=== PATIENT | male | born 1995 | race Caucasian/White ===

== ENCOUNTER 2017-08-01 07:17 | Emergency (ER) | payer OTHER ==
--- NOTE | 2017-08-01 07:19 | UC ---
Skin Complaint HPI - HPI Summary HPI Summary: 22 year old male presents with complains of bump on his mid back. - History of Current Complaint Time Seen by Provider: 08/01/17 07:19 Stated Complaint: bump ON BACK Hx Obtained From: Patient Onset/Duration: Gradual Onset Skin Exposure Onset/Duration: Days Ago Onset Severity: Moderate Current Severity: Moderate - Allergy/Home Medications Allergies/Adverse Reactions: Allergies Allergy/AdvReac Type Severity Reaction Status Date / Time No Known Allergies Allergy Verified 08/01/17 07:27 Review of Systems Constitutional: Negative Skin: Other - bump on spine Eyes: Negative ENT: Negative Respiratory: Negative Cardiovascular: Negative Gastrointestinal: Negative Genitourinary: Negative Motor: Negative Neurovascular: Negative Musculoskeletal: Negative Neurological: Negative Psychological: Negative All Other Systems Reviewed And Are Negative: Yes PMH/Surg Hx/FS Hx/Imm Hx - Surgical History Surgical History: None - Family History Known Family History: Positive: Hypertension - Social History Alcohol Use: Weekly Substance Use Type: None Smoking Status (MU): Never Smoked Tobacco Physical Exam Triage Information Reviewed: Yes Vital Signs Reviewed: Yes Eye Exam: Normal ENT Exam: Normal Dental Exam: Normal Neck exam: Normal Neck: Positive: 1 Respiratory Exam: Normal Cardiovascular Exam: Normal Abdominal Exam: Normal Musculoskeletal Exam: Normal Neurological Exam: Normal Psychological Exam: Normal Skin: Positive: Other - nodule/abscess on back Course/Dx - Diagnoses Provider Diagnoses: abscess/nodule on lower back Discharge - Discharge Plan Condition: Stable Disposition: HOME Prescriptions: Cephalexin CAP* [Keflex CAP*] 500 mg PO TID #30 cap Patient Education Materials: Abscess (ED) Referrals: [facility] [Primary Care Provider] - Meliza Shin [Medical Doctor] -
[2017-08-01 07:26] VITALS: BP 119/66
== END 2017-08-01 07:37 | disposition home or self-care (01) ==
LOC: UCEAST 07:17
DX: R22.2 Localized swelling, mass and lump, trunk (principal)
CPT/HCPCS: 99212; G0463

== ENCOUNTER 2018-02-26 07:17 | Emergency (ER) | payer OTHER ==
[2018-02-26 07:28] VITALS: BP 121/64
--- NOTE | 2018-02-26 07:35 | UC ---
Throat Pain/Nasal Jagdish HPI - HPI Summary HPI Summary: Patient is a 22-year-old male with a 10 day history of sinus pressure and pain. The pressure radiates to his occiput. Prior to the onset of the symptoms he had about a 2 week history of severe allergic rhinitis. No fever or chills. No marked dental or gum sensitivity. He has had no chest pain or shortness of breath. - History of Current Complaint Chief Complaint: UCRespiratory Stated Complaint: SINUS COMPLAINT Time Seen by Provider: 02/26/18 07:28 Hx Obtained From: Patient Onset/Duration: Gradual Onset, Lasting Days - 10 Severity: Mild Pain Intensity: 3 Pain Scale Used: 0-10 Numeric Associated Signs & Symptoms: Positive: Sinus Discomfort Related History: Seasonal Allergies - Allergies/Home Medications Allergies/Adverse Reactions: Allergies Allergy/AdvReac Type Severity Reaction Status Date / Time Seasonal Allergy Congestion Uncoded 02/26/18 07:22 Home Medications: Home Medications Cetirizine* [ZyrTEC 10 MG TAB*] 10 mg PO DAILY 02/26/18 [History Confirmed 02/26] PMH/Surg Hx/FS Hx/Imm Hx Previously Healthy: Yes - Surgical History Surgical History: Yes Surgery Procedure, Year, and Place: wisdom teeth - Family History Known Family History: Positive: Cardiac Disease, Hypertension, Diabetes - Social History Alcohol Use: Weekly Substance Use Type: None Smoking Status (MU): Never Smoked Tobacco - Immunization History Most Recent Influenza Vaccination: NOT UTD Most Recent Tetanus Shot: unsure Review of Systems Constitutional: Negative Skin: Negative Eyes: Negative ENT: Sinus Pain/Tenderness Respiratory: Negative Cardiovascular: Negative Gastrointestinal: Negative Genitourinary: Negative Motor: Negative Neurovascular: Negative Musculoskeletal: Negative Neurological: Negative Psychological: Negative Is Patient Immunocompromised?: No All Other Systems Reviewed And Are Negative: Yes Physical Exam Triage Information Reviewed: Yes Appearance: Well-Appearing, No Pain Distress, Well-Nourished Vital Signs: Initial Vital Signs Temp 98.9 F 02/26/18 07:23 Pulse 76 02/26/18 07:23 Resp 18 02/26/18 07:23 BP 121/64 02/26/18 07:23 Pulse Ox 99 02/26/18 07:23 Vital Signs Reviewed: Yes Eyes: Positive: Conjunctiva Clear ENT: Positive: Hearing grossly normal, Nasal congestion, TMs normal, Sinus tenderness, Uvula midline. Negative: Trismus, Muffled voice, Hoarse voice Neck: Positive: Supple, Nontender, No Lymphadenopathy Respiratory: Positive: Lungs clear, Normal breath sounds, No respiratory distress, No accessory muscle use Cardiovascular: Positive: RRR, No Murmur Neurological: Positive: Alert Psychological Exam: Normal Psychological: Positive: Normal Response To Family Skin Exam: Normal Throat Pain/Nasal Course/Dx - Differential Dx/Diagnosis Provider Diagnoses: acute sinusitis Discharge - Sign-Out/Discharge Documenting (check all that apply): Patient Departure - Discharge Plan Condition: Stable Disposition: HOME Prescriptions: Amoxicillin PO (*) [Amoxicillin 875 MG (*)] 875 mg PO BID #20 tab Fluticasone NASAL SPRAY 50MCG* [Flonase NASAL SPRAY 50MCG*] 2 spray BOTH NARES BID #1 btl Patient Education Materials: Sinusitis (ED) Referrals: No Primary Care Phys,NOPCP [Primary Care Provider] - Additional Instructions: recheck for new or worsening symptoms - Billing Disposition and Condition Condition: STABLE Disposition: Home
== END 2018-02-26 07:45 | disposition home or self-care (01) ==
LOC: UCEAST 07:17
DX: J01.90 Acute sinusitis, unspecified (principal)
CPT/HCPCS: 99212; G0463

== ENCOUNTER 2018-04-06 07:42 | Emergency (ER) | payer OTHER ==
[2018-04-06 07:51] VITALS: BP 119/65
[2018-04-06] MEDS ORDERED: Lidocaine 1%* 5 ML VIAL INJ ONE (07:58)
--- NOTE | 2018-04-06 08:04 | UC ---
Skin Complaint HPI - HPI Summary HPI Summary: This patient is a year old 22 M presenting to [facility] with a CC of splinter in his right 2nd finger along the middle phalynx. He states his tetanus is up to date, that he is left handed, and believes the foreign body is wood. Pt had sinus infection and put on ABx recently, but is not on any currently. He denies joint pain in affected finger. not immunocompromised Pt's medications reviewed - History of Current Complaint Stated Complaint: SPLINTER Hx Obtained From: Patient Onset/Duration: Sudden Onset, Lasting Days, Still Present Skin Exposure Onset/Duration: Days Ago Timing: Constant Onset Severity: Mild Current Severity: Mild Pain Intensity: 1 Pain Scale Used: 0-10 Numeric Location: Hand (Right) Character: Redness, Raised Aggravating Factor(s): Nothing Alleviating Factor(s): Nothing Associated Signs & Symptoms: Positive: Tenderness. Negative: Fever Related History: Foreign Body - Probably wood, Other: - tetanus up to date, left -hand dominant - Allergy/Home Medications Allergies/Adverse Reactions: Allergies Allergy/AdvReac Type Severity Reaction Status Date / Time Seasonal Allergy Congestion Uncoded 02/26/18 07:22 Review of Systems Skin: Other - splinter in right 2nd finger Motor: Decreased ROM Is Patient Immunocompromised?: No All Other Systems Reviewed And Are Negative: Yes PMH/Surg Hx/FS Hx/Imm Hx Previously Healthy: Yes - Surgical History Surgical History: Yes Surgery Procedure, Year, and Place: wisdom teeth - Family History Known Family History: Positive: Cardiac Disease, Hypertension, Diabetes - Social History Occupation: Student Lives: Dormitory/Roommates Alcohol Use: Weekly Substance Use Type: None Smoking Status (MU): Never Smoked Tobacco - Immunization History Most Recent Influenza Vaccination: NOT UTD Most Recent Tetanus Shot: unsure Physical Exam - Summary Physical Exam Summary: Vital Signs Reviewed: Yes A+Ox3, no distress Eyes: Conjunctiva Clear ENT: Hearing grossly normal neck: supple Respiratory: Positive: No respiratory distress, No accessory muscle use Cardiovascular: skin color reflect adequate perfusion Musculoskeletal Exam: FAUSTIN x 4 without difficulty + flex/ext MCP, PIP, DIP without difficulty Neurological: Positive: Alert, ambulatory without difficulty Psychological: Positive: Normal Response To Family Skin: Positive: right hand index pt with visible fb palmar side along mid phalynx no drainage. + mild TTP no odor, no discharge mild erythema at site of FB - no extension, no fluctuance, no induration Triage Information Reviewed: Yes Vital Signs: Initial Vital Signs Temp 97.4 F 04/06/18 07:47 Pulse 67 04/06/18 07:47 Resp 18 04/06/18 07:47 BP 119/65 04/06/18 07:47 Pulse Ox 99 04/06/18 07:47 Course/Dx - Course Course Of Treatment: Pt with foreign body in right index finger. see procedure note - removed without difficulty - pt tolerated well. reviewed with pt s/s infection. return precautions. motrin/apap - Diagnoses Provider Diagnoses: foreign body removal right index finger Procedures - Procedure Summary Procedure Summary: Verbal consent obtained timeout conducted with nurse at bedside. area cleansed with chlorohexadine, foreign body infiltrated 1.5 ml 1% lidocaine no epi, using splinter forceps removed thorn splinter intact. Washed site after removal, pt tolerated well, reviewed wound care signs and symptoms of infection. Discharge - Sign-Out/Discharge Documenting (check all that apply): Patient Departure All imaging exams completed and their final reports reviewed: No Studies - Discharge Plan Condition: Stable Disposition: HOME Patient Education Materials: Soft Tissue Foreign Body (ED) Forms: *School Release Referrals: [facility] @ [Outside] No Primary Care Phys,NOPCP [Primary Care Provider] - Additional Instructions: - wash wound with warm,soapy water 2-3 times a day - cover wound with antibiotic ointment and bandaid - Monitor for signs of infection. Redness, red streaking, odor, pus, increased pain - Numbing medication approximately 90 minutes. It is recommended to alternate ibuprofen (Motrin, Advil) and Tylenol every 3 hours as needed for pain. - Contact student health or return with any questions or concerns - Billing Disposition and Condition Condition: STABLE Disposition: Home - Attestation Statements Document Initiated by Scribe: Yes Documenting Scribe: Elijah Teague Provider For Whom David is Documenting (Include Credential): Dr. Norah Tilley MD Scribe Attestation: Elijah Aburto scribed for Dr. Norah Tilley MD on 04/11/18 at 1558. Scribe Documentation Reviewed: Yes Provider Attestation: The documentation as recorded by the meetibElijah vega accurately reflects the service I personally performed and the decisions made by me, Dr. Norah Tilley MD
== END 2018-04-06 08:20 | disposition home or self-care (01) ==
LOC: UCEAST 07:42
DX: S60.450A Superficial foreign body of right index finger, initial encounter (principal); X58.XXXA Exposure to other specified factors, initial encounter; Y93.9 Activity, unspecified; Y92.9 Unspecified place or not applicable
CPT/HCPCS: 10120; 99211; G0463

== ENCOUNTER 2018-07-17 18:45 | Emergency (ER) | payer OTHER ==
[2018-07-17 18:57] VITALS: BP 118/70
--- NOTE | 2018-07-17 19:33 | UC ---
Abdominal Pain Male HPI - HPI Summary HPI Summary: PATIENT COMPLAINS OF SEVERAL WEEKS TO MONTHS OF RIGHT SIDED ABDOMINAL PAIN WITH OCCASIONAL RADIATION INTO THE RIGHT GROIN AND TESTICLE. HE HAS BEEN COMPLAINING OF SOME HEARTBURN SYMPTOMS ALONG WITH SOME INTERMITTENT DYSURIA AND URINARY FREQUENCY. HE DENIES ANY FEVER. PAIN IS NOT ASSOCIATED WITH FOOD. NO DIARRHEA OR CONSTIPATION BUT THINKS HE SAW SOME BLOOD IN HIS STOOL LAST NIGHT AND THIS MORNING. DENIES ANY HISTORY OF HEMORRHOIDS. DENIES ANY ANAL PENETRATION. HAS UNPROTECTED SEX WITH HIS GIRLFRIEND. THEY ARE MONOGAMOUS. REPORTS HE HAD STD TESTING ABOUT A MONTH AGO AT [facility] WHICH WAS NEGATIVE BUT HE WAS TX WITH 1G AZITH PRESUMPTIVELY. - History of Current Complaint Chief Complaint: UCAbdominalPain Stated Complaint: ABD PAIN Time Seen by Provider: 07/17/18 18:59 Hx Obtained From: Patient Onset/Duration: Gradual Onset, Lasting Weeks, Still Present Timing: Constant Severity Initially: Moderate Severity Currently: Moderate Pain Intensity: 5 Pain Scale Used: 0-10 Numeric Location: Discrete At: RUQ, Discrete At: RLQ Radiates: Yes Radiates to: Inguinal Character: Sharp Aggravating Factor(s): Nothing Alleviating Factor(s): Nothing Associated Signs And Symptoms: Positive: Blood in Stool, Urinary Symptoms. Negative: Diaphoresis, Fever, Cough, Chest Pain, Back Pain, Constipation, Decreased Appetite, Nausea, Vomiting, Diarrhea, Penile Discharge - Allergies/Home Medications Allergies/Adverse Reactions: Allergies Allergy/AdvReac Type Severity Reaction Status Date / Time Seasonal Allergy Congestion Uncoded 07/17/18 18:57 Home Medications: Home Medications NK [No Home Medications Reported] 07/17/18 [History Confirmed 07/17/18] PMH/Surg Hx/FS Hx/Imm Hx Previously Healthy: Yes - Surgical History Surgical History: Yes Surgery Procedure, Year, and Place: wisdom teeth - Family History Known Family History: Positive: Cardiac Disease, Hypertension, Diabetes Family History: GRANDFATHER - COLON CANCER - Social History Alcohol Use: Occasionally Substance Use Type: None Smoking Status (MU): Never Smoked Tobacco - Immunization History Most Recent Influenza Vaccination: NOT UTD Most Recent Tetanus Shot: unsure Review of Systems All Other Systems Reviewed And Are Negative: Yes Constitutional: Positive: Negative ENT: Positive: Negative Respiratory: Positive: Negative Cardiovascular: Positive: Negative Gastrointestinal: Positive: Abdominal Pain Genitourinary: Positive: Dysuria, Frequency Physical Exam Triage Information Reviewed: Yes Appearance: Well-Appearing, No Pain Distress, Well-Nourished Vital Signs: Initial Vital Signs Temp 98.8 F 07/17/18 18:50 Pulse 78 07/17/18 18:50 Resp 16 07/17/18 18:50 BP 118/70 07/17/18 18:50 Pulse Ox 100 07/17/18 18:50 Laboratory Tests 07/17/18 19:14 POC Urine Color Yellow POC Urine Clarity Clear POC Urine pH 7.0 POC Ur Specif [place] 1.020 POC Urine Protein Negative POC Ur Glucose (UA) Negative POC Urine Ketones Negative POC Urine Blood Negative POC Urine Nitrite Negative POC Urine Bilirubin Negative POC Urine Urobilinogen 0.2 POC U Leukocyte Esteras Negative Vital Signs Reviewed: Yes Eyes: Positive: Conjunctiva Clear ENT: Positive: Hearing grossly normal Neck: Positive: Supple Respiratory: Positive: No respiratory distress, No accessory muscle use Cardiovascular: Positive: Pulses Normal Abdomen Description: Positive: Soft, Other: - TTP RUQ, RLQ. NO REBOUND OR RIGIDITY. NEG ROBLES'S. Negative: CVA Tenderness (R), CVA Tenderness (L), Distended, Guarding Bowel Sounds: Positive: Present Male Genital Exam: Positive: No Hernia, Testicular Tenderness (R) - MILD. Negative: Epididymal Tenderness, Erythema, Inguinal Tenderness, Testicular Tenderness (L), Urethral Discharge Musculoskeletal: Positive: No Edema Neurological: Positive: Alert Psychological: Positive: Age Appropriate Behavior Skin: Negative: Rashes Abd Pain Male Course/Dx - Course Course Of Treatment: URINE DIP UNREMARKABLE. PT WITH CONSTELLATION OF VAGUE SYMPTOMS INCLUDING RUQ PAIN, RIGHT GROIN PAIN, INTERMITTENT RIGHT TESTICULAR PAIN, DYSURIA AND URINARY FREQUENCY. REQUIRES HIGHER LEVEL OF CARE THAN WHAT WE CAN PROVIDE IN THE . PT OFFERED TRANSPORT TO THE ED BY AMBULANCE BUT DECLINES. ADVISED THAT BY NOT TRAVELING IN A MONITORED SETTING HE COULD BE RISKING WORSENING OF HIS CONDITION THAT COULD POSE A THREAT TO HIS LIFE, HEALTH AND MEDICAL SAFETY. HE VERBALIZES UNDERSTANDING AND CONTINUES TO DECLINE AMBULANCE TRANSFER. - Differential Dx/Clinical Impression Provider Diagnosis: RUQ pain, Dysuria Discharge - Sign-Out/Discharge Documenting (check all that apply): Patient Departure All imaging exams completed and their final reports reviewed: No Studies - Discharge Plan Condition: Stable Disposition: TRANS HIGHER LVL OF CARE FAC Patient Education Materials: Dysuria (ED), Abdominal Pain (ED) Referrals: [facility] @ [facility] [Outside] Additional Instructions: URINE TEST TODAY UNREMARKABLE. UNCLEAR ETIOLOGY OF YOUR SYMPTOMS. GO DIRECTLY TO THE [facility] FROM HERE FOR FURTHER EVALUATION. YOU HAVE DECLINED TRANSFER TO THE ED BY AMBULANCE. BE ADVISED THAT BY NOT TRAVELING IN A MONITORED SETTING YOU COULD BE RISKING WORSENING OF YOUR CONDITION THAT COULD POSE A THREAT TO YOUR LIFE, HEALTH AND MEDICAL SAFETY. - Billing Disposition and Condition Condition: STABLE Disposition: Trans Higher Lvl of Care Fac
== END 2018-07-17 19:41 | disposition short-term general hospital (02) ==
LOC: UCEAST 18:45
DX: R10.11 Right upper quadrant pain (principal); R30.0 Dysuria
CPT/HCPCS: 81003; 99212; G0463

== ENCOUNTER 2018-07-17 20:01 | Emergency (ER) | payer OTHER ==
[2018-07-17 20:51] LABS: ABS Basophils 0 10^3/ul (0-0.2); ABS Eosinophils 0.2 10^3/ul (0-0.6); ABS Lymphocytes 1.4 10^3/ul (1.0-4.8); ABS Monocytes 0.5 10^3/ul (0-0.8); ABS Neutrophils 3.9 10^3/ul (1.5-7.7); ABS Nucleated RBC 0 10^3/ul; Hematocrit 43 % (42-52); Hemoglobin 14.8 g/dl (14.0-18.0); Lymphocyte % 22.9 %; Mean Corpuscular HGB Conc 35 g/dl (31-36); Mean Corpuscular Hemoglobin 30 pg (27-31); Mean Corpuscular Volume 86 fL (80-94); Mean Platelet Volume 7.8 fL (7.4-10.4); Nucleated Red Blood Cells % 0.1; Platelet Count 233 10^3/ul (150-450); Red Blood Count 4.94 10^6/ul (4.00-5.40); Red Cell Distribution Width 13 % (10.5-15)
[2018-07-17 21:01] LABS: Urine Appearance Clear; Urine Blood Negative (Negative); Urine Color Straw; Urine Ketones Negative (Negative); Urine Protein Negative (Negative); Urine Specific Gravity 1.011 (1.010-1.030); Urine Urobilinogen Negative (Negative)
[2018-07-17 21:08] LABS: EGFR Non-African American 78.8 (>60)
--- NOTE | 2018-07-17 22:59 | ED ---
Abdominal Pain/Male - HPI Summary HPI Summary: Patient sent from urgent care to ED complains of intermittent right upper quadrant abdominal pain times months with occasional radiation down into right side groin and testicle. Right upper quadrant pain has been progressive and constant for the past 5 days, steady at 5/10 pain. Patient states pain is not worse with food or movement. Denies trauma. Complains of one episode of blood on toilet paper after bowel movement yesterday. Patient denies fever, cough, sore throat, RESENDIZ, neck stiffness, CP, SOB, N/V/D, change in urine, penile symptoms. Medical history is none. Abdominal surgical history is none. - History of Current Complaint Chief Complaint: EDAbdPain Stated Complaint: ABD PAIN Time Seen by Provider: 07/17/18 20:17 Hx Obtained From: Patient Onset/Duration: Gradual Onset, Lasting Weeks Timing: Constant, Lasting Weeks Severity Initially: Moderate Severity Currently: Moderate Pain Intensity: 6 Pain Scale Used: 0-10 Numeric Location: Discrete At: RUQ Radiates: Yes Radiates to: Other - Groin Character: Dull, Cramping Aggravating Factor(s): Nothing Alleviating Factor(s): Nothing Associated Signs And Symptoms: Positive: Blood in Stool - Allergies/Home Medications Allergies/Adverse Reactions: Allergies Allergy/AdvReac Type Severity Reaction Status Date / Time Seasonal Allergy Congestion Uncoded 07/17/18 18:57 PMH/Surg Hx/FS Hx/Imm Hx Endocrine/Hematology History: Denies: Hx Diabetes, Hx Thyroid Disease Cardiovascular History: Denies: Hx Hypertension Respiratory History: Denies: Hx Asthma, Hx Chronic Obstructive Pulmonary Disease (COPD) GI History: Denies: Hx Ulcer History: Denies: Hx Dialysis Neurological History: Denies: Hx CVA Psychiatric History: Denies: Hx Autism - Surgical History Surgery Procedure, Year, and Place: wisdom teeth Infectious Disease History: No Infectious Disease History: Denies: Hx Hepatitis, Hx Human Immunodeficiency Virus (HIV), Traveled Outside the [place] in Last 30 Days - Family History Known Family History: Positive: Cardiac Disease, Hypertension, Diabetes - Social History Occupation: Student Alcohol Use: Occasionally Hx Substance Use: No Substance Use Type: Reports: None Hx Tobacco Use: No Smoking Status (MU): Never Smoked Tobacco Review of Systems Constitutional: Negative Eyes: Negative ENT: Negative Cardiovascular: Negative Respiratory: Negative Positive: Abdominal Pain Genitourinary: Negative Musculoskeletal: Negative Skin: Negative Neurological: Negative Psychological: Normal All Other Systems Reviewed And Are Negative: Yes Physical Exam - Summary Physical Exam Summary: Mild right upper quadrant pain to palpation. Abdominal exam otherwise unremarkable. Exam of genitals unremarkable. Triage Information Reviewed: Yes Vital Signs On Initial Exam: Initial Vitals Temp Pulse Resp BP Pulse Ox 100.0 F 82 16 120/70 100 07/17/18 20:03 07/17/18 20:03 07/17/18 20:03 07/17/18 20:03 07/17/18 20:03 Vital Signs Reviewed: Yes Appearance: Positive: Well-Appearing Skin: Positive: Warm Head/Face: Positive: Normal Head/Face Inspection Eyes: Positive: Normal Neck: Positive: Supple Respiratory/Lung Sounds: Positive: Clear to Auscultation Cardiovascular: Positive: Normal Abdomen Description: Positive: Other: Male Genital Exam: Positive: Normal Genitalia Musculoskeletal: Positive: Normal Neurological: Positive: Normal Psychiatric: Positive: Normal AVPU Assessment: Alert - [place] Coma Scale Best Eye Response: 4 - Spontaneous Best Motor Response: 6 - Obeys Commands Best Verbal Response: 5 - Oriented Coma Scale Total: 15 Diagnostics - Vital Signs Vital Signs Temp Pulse Resp BP Pulse Ox 07/17/18 20:34 73 136/76 100 07/17/18 20:03 100.0 F 82 16 120/70 100 - Laboratory Lab Results: Lab Results 07/17/18 07/17/18 07/17/18 Range/Units 20:44 20:44 20:53 WBC 6.0 (3.5-10.8) 10^3/ul RBC 4.94 (4.00-5.40) 10^6/ul Hgb 14.8 (14.0-18.0) g/dl Hct 43 (42-52) % MCV 86 (80-94) fL MCH 30 (27-31) pg MCHC 35 (31-36) g/dl RDW 13 (10.5-15) % Plt Count 233 (150-450) 10^3/ul MPV 7.8 (7.4-10.4) fL Neut % (Auto) 65.7 % Lymph % (Auto) 22.9 % [place] % (Auto) 7.9 % Eos % (Auto) 3.0 % Baso % (Auto) 0.5 % Absolute Neuts (auto) 3.9 (1.5-7.7) 10^3/ul Absolute Lymphs (auto) 1.4 (1.0-4.8) 10^3/ul Absolute Monos (auto) 0.5 (0-0.8) 10^3/ul Absolute Eos (auto) 0.2 (0-0.6) 10^3/ul Absolute Basos (auto) 0 (0-0.2) 10^3/ul Absolute Nucleated RBC 0 10^3/ul Nucleated RBC % 0.1 Sodium 138 (135-145) mmol/L Potassium 4.1 (3.5-5.0) mmol/L Chloride 105 (101-111) mmol/L Carbon Dioxide 27 (22-32) mmol/L Anion Gap 6 (2-11) mmol/L BUN 19 (6-24) mg/dL Creatinine 1.15 (0.67-1.17) mg/dL Est GFR ( Amer) 95.4 (>60) Est GFR (Non-Af Amer) 78.8 (>60) BUN/Creatinine Ratio 16.5 (8-20) Glucose 110 H (70-100) mg/dL Calcium 9.9 (8.6-10.3) mg/dL Total Bilirubin 0.60 (0.2-1.0) mg/dL AST 17 (13-39) U/L ALT 15 (7-52) U/L Alkaline Phosphatase 58 (34-104) U/L C-Reactive Protein < 1.00 (<8.01) mg/L Total Protein 7.5 (6.4-8.9) g/dL Albumin 4.7 (3.2-5.2) g/dL Globulin 2.8 (2-4) g/dL Albumin/Globulin Ratio 1.7 (1-3) Lipase 10 L (11.0-82.0) U/L Urine Color Straw Urine Appearance Clear Urine pH 6.0 (5-9) Ur Specific [place] 1.011 (1.010-1.030) Urine Protein Negative (Negative) Urine Ketones Negative (Negative) Urine Blood Negative (Negative) Urine Nitrate Negative (Negative) Urine Bilirubin Negative (Negative) Urine Urobilinogen Negative (Negative) Ur Leukocyte Esterase Negative (Negative) Urine Glucose Negative (Negative) Result Diagrams: 07/17/18 20:44 07/17/18 20:44 Lab Statement: Any lab studies that have been ordered have been reviewed, and results considered in the medical decision making process. Abdominal Pain Fem Course/Dx - Course Course Of Treatment: Patient sent from urgent care to ED complains of intermittent right upper quadrant abdominal pain times months with occasional radiation down into right side groin and testicle. Right upper quadrant pain has been progressive and constant for the past 5 days, steady at 5/10 pain. Patient states pain is not worse with food or movement. Denies trauma. Complains of one episode of blood on toilet paper after bowel movement yesterday. Patient denies fever, cough, sore throat, RESENDIZ, neck stiffness, CP, SOB, N/V/D, change in urine, penile symptoms. Medical history is none. Abdominal surgical history is none. Physical exam:Mild right upper quadrant pain to palpation. Abdominal exam otherwise unremarkable. Exam of genitals unremarkable. Vital signs within normal limits and stable. Labs unremarkable. Ultrasound gallbladder negative. Ultrasound testicle is negative. Patient opted not to have CT abdomen and pelvis performed as it would take another 2 hours and he has final exams at 8 AM. Patient agreed to follow up with [facility] after finals for further evaluation, or return to the ED for any new or worsening symptoms. - Diagnoses Provider Diagnoses: Right upper quadrant pain Discharge - Sign-Out/Discharge Documenting (check all that apply): Patient Departure - Discharge Plan Condition: Stable Disposition: HOME Patient Education Materials: Abdominal Pain (ED) Referrals: No Primary Care Phys,NOPCP [Primary Care Provider] - [facility] [Outside] Additional Instructions: Follow[facility]up with [facility] for further evaluation. Return to ED for any new or worsening symptoms. - Billing Disposition and Condition Condition: STABLE Disposition: Home
[2018-07-17 23:49] VITALS: BP 126/69
== END 2018-07-17 23:50 | disposition home or self-care (01) ==
LOC: ED 20:01
DX: R10.11 Right upper quadrant pain (principal)
CPT/HCPCS: 36415; 76705; 76870; 80053; 81003; 83690; 85025; 86140; 99283

== ENCOUNTER 2018-11-14 13:17 | Emergency (ER) | payer OTHER ==
[2018-11-14 13:48] VITALS: BP 110/63
--- NOTE | 2018-11-14 14:00 | UC ---
Throat Pain/Nasal Jagdish HPI - HPI Summary HPI Summary: 23 yo male presents with left facial pain. He tells me that for the last month he has been having left facial pain intermittently that would last about half a day and then subside. This would happen a few times a week. He had a routine eye exam a couple weeks ago and was told everything was normal. Over the last 3- 4 days the pain has been more constant. He says that it feels like the pain is in his left upper tooth, sinuses, or left ear - but cannot pin point where exactly. No area is tender to touch. Does not hurt to open/close his jaw. He has been feeling well otherwise and is eating and drinking well. Denies fever, chills, vision changes, dizziness, SOB, chest pain/palpitations, neck pain, sinus congestion, sore throat, or change in pain with eating hot/cold items. He has not taken anything OTC for his symptoms. - History of Current Complaint Chief Complaint: UCGeneralIllness Stated Complaint: DENTAL Time Seen by Provider: 11/14/18 13:59 Hx Obtained From: Patient Onset/Duration: Gradual Onset Severity: Moderate Pain Intensity: 6 Pain Scale Used: 0-10 Numeric - Allergies/Home Medications Allergies/Adverse Reactions: Allergies Allergy/AdvReac Type Severity Reaction Status Date / Time Seasonal Allergy Congestion Uncoded 11/14/18 13:47 PMH/Surg Hx/FS Hx/Imm Hx - Additional Past Medical History Additional PMH: None Other History Of: Negative For: Anticoagulant Therapy - Surgical History Surgical History: Yes Surgery Procedure, Year, and Place: wisdom teeth - Family History Known Family History: Positive: Cardiac Disease, Hypertension, Diabetes Family History: GRANDFATHER - COLON CANCER - Social History Alcohol Use: Weekly Substance Use Type: None Smoking Status (MU): Never Smoked Tobacco - Immunization History Most Recent Influenza Vaccination: NOT UTD Most Recent Tetanus Shot: unsure Review of Systems All Other Systems Reviewed And Are Negative: Yes Constitutional: Positive: Negative Skin: Positive: Negative Eyes: Positive: Negative ENT: Positive: Other - left facial pain Respiratory: Positive: Negative Cardiovascular: Positive: Negative Gastrointestinal: Positive: Negative Neurovascular: Positive: Negative Musculoskeletal: Positive: Negative Neurological: Positive: Negative Psychological: Positive: Negative Physical Exam - Summary Physical Exam Summary: GENERAL: NAD. WDWN. No pain distress. SKIN: No rashes, sores, lesions, or open wounds. HEENT: Head: AT/NC. No TMJ TTP. No parotid tenderness or edema. No soft tissue abscess appreciated. NTTP temporal artery. Eyes: EOM intact. Conjunctiva clear without inflammation or discharge. Ears: Hearing grossly normal. TMs intact, no bulging, erythema, or edema. Nose: Nasal mucosa pink and moist. NTTP maxillary and frontal sinus. Throat: Posterior oropharynx without exudates, erythema, or tonsillar enlargement. Uvula midline. NECK: Supple. Nontender. No lymphadenopathy. CHEST: CTAB. No r/r/w. No accessory muscle use. Breathing comfortably and in no distress. CV: RRR. Without m/r/g. Pulses intact. Cap refill <2seconds NEURO: CN: II: Peripheral leon intact. Vision normal. III, IV, : EOMI. No nystagmus. PERRLA. V: Sensations intact and symmetric. Opens mouth and clenches teeth. VII: No facial asymmetry. Forehead wrinkles. Grins, shuts eyes, frowns, puffs cheeks. VIII: Hearing intact to finger rub. IX, X: Swallows and coughs. Uvula midline. XI: Shrugs shoulders. Turns head against resistance. XII: No tongue deviation [id number] are intact. PSYCH: Age appropriate behavior. Triage Information Reviewed: Yes Vital Signs: Initial Vital Signs Temp 99.8 F 11/14/18 13:43 Pulse 64 11/14/18 13:43 Resp 18 11/14/18 13:43 BP 110/63 11/14/18 13:43 Pulse Ox 100 11/14/18 13:43 Vital Signs Reviewed: Yes Dental: Negative: Percussion Tenderness @, Gross Decay/Caries @, Dental Fracture @, Abscess @, Cellulitis @, Cervical Lymphadenopathy, Bleeding Throat Pain/Nasal Course/Dx - Course Course Of Treatment: CT: IMPRESSION: NO ACUTE INTRACRANIAL PATHOLOGY. Pt's exam is WNL and CT is negative for any acute process. At this time I am unsure the etiology of his symptoms, but I suspect his symptoms could be dental related as he says he avoids going to the dentist and has not seen one in a long time. DDx includes neuralgia, TMJ disorder, dental pain, atypical headache , or - less likely - arteritis. Will draw for CBC, CMP, ESR, and CRP today. Strongly encouraged to f/u with [facility] this week to review labwork and for a recheck of his symptoms. Advised that if symptoms worsen or if he develops new or changing symptoms to go to the ED - Differential Dx/Diagnosis Provider Diagnosis: Left-sided face pain Discharge - Sign-Out/Discharge Documenting (check all that apply): Patient Departure All imaging exams completed and their final reports reviewed: Yes - Discharge Plan Condition: Stable Disposition: HOME Referrals: [facility] [Outside] - As Soon As Possible No Primary Care Phys,NOPCP [Primary Care Provider] - Additional Instructions: If you develop a fever, shortness of breath, chest pain, new or worsening symptoms - please call your PCP or go to the ED. Your CT scan today was normal. I am unsure the cause of your symptoms today. Your exam was normal, therefore we have drawn for labwork today to further evaluate your symptoms. I recommend that you call [facility] at the number below to schedule a follow up appointment with a interim doctor as soon as possible for further evaluation of your symptoms - Billing Disposition and Condition Condition: STABLE Disposition: Home - Attestation Statements Provider Attestation: Per institutional requirements, I have reviewed the chart, however, I was not consulted specifically or made aware of this patient by the midlevel provider. I did not personally evaluate, interact with , or disposition this patient.
[2018-11-14 18:59] LABS: ABS Basophils 0 10^3/ul (0-0.2); ABS Eosinophils 0.2 10^3/ul (0-0.6); ABS Lymphocytes 1.4 10^3/ul (1.0-4.8); ABS Monocytes 0.5 10^3/ul (0-0.8); ABS Neutrophils 3.3 10^3/ul (1.5-7.7); ABS Nucleated RBC 0 10^3/ul; Eosinophil % 4.4 %; Hematocrit 46 % (36-46); Hemoglobin 15.5 g/dL (14.0-18.0); Lymphocyte % 25.9 %; Mean Corpuscular HGB Conc 34 g/dL (31-36); Mean Corpuscular Hemoglobin 30 pg (27-31); Mean Corpuscular Volume 87 fL (80-94); Mean Platelet Volume 8.7 fL (7.4-10.4); Nucleated Red Blood Cells % 0; Platelet Count 238 10^3/uL (150-450); Red Blood Count 5.25 10^6 /uL (4.18-5.48); Red Cell Distribution Width 13 % (10.5-15); White Blood Count 5.4 10^3/uL (3.5-10.8)
[2018-11-14 19:03] LABS: Albumin 4.7 g/dL (3.2-5.2); CO2 Carbon Dioxide 23 mmol/L (22-32); Calcium 9.5 mg/dL (8.6-10.3); Chloride 105 mmol/L (101-111); Sodium 135 mmol/L (135-145)
[2018-11-14 19:09] LABS: ALT 15 U/L (7-52); Albumin/Globulin Ratio 1.9 (1-3); Alkaline Phosphatase 72 U/L (34-104); BUN/Creatinine Ratio 14.5 (8-20); Blood Urea Nitrogen 16 mg/dL (6-24); C Reactive Protein < 1.00 mg/L (<8.01); EGFR African American 100.4 (>60); Globulin 2.5 g/dL (2-4); Glucose 92 mg/dL (70-100); Total Protein 7.2 g/dL (6.4-8.9)
[2018-11-14 19:26] LABS: Anion Gap 7 mmol/L (2-11)
[2018-11-14 20:23] LABS: Erythrocyte Sed Rate 1 mm/Hr (0-14)
--- NOTE | 2018-11-15 11:30 | UC ---
- Progress Note Progress Note: Reviewed notes from [facility], and blood work as available. Nonurgent. RN to call pt with results. Encourage follow up pcp as advised. Course/Dx - Diagnoses Provider Diagnoses: Left-sided face pain Discharge - Sign-Out/Discharge Documenting (check all that apply): Post-Discharge Follow Up All imaging exams completed and their final reports reviewed: Yes - Discharge Plan Condition: Stable Disposition: HOME Referrals: [facility] [Outside] - As Soon As Possible No Primary Care Phys,NOPCP [Primary Care Provider] - Additional Instructions: If you develop a fever, shortness of breath, chest pain, new or worsening symptoms - please call your PCP or go to the ED. Your CT scan today was normal. I am unsure the cause of your symptoms today. Your exam was normal, therefore we have drawn for labwork today to further evaluate your symptoms. I recommend that you call [facility] at the number below to schedule a follow up appointment with a interim doctor as soon as possible for further evaluation of your symptoms - Billing Disposition and Condition Condition: STABLE Disposition: Home
== END 2018-11-14 15:04 | disposition home or self-care (01) ==
LOC: UCEAST 13:17
DX: G50.1 Atypical facial pain (principal)
CPT/HCPCS: 36415; 70450; 80053; 85025; 85652; 86140; 99211; G0463